=== PATIENT | male | born 1930 | race Caucasian/White ===

== ENCOUNTER 2016-08-23 22:11 | Emergency (ER) | payer BC ==
--- NOTE | 2016-08-23 22:26 | EDPHY ---
H & P Time Seen by Provider: 08/23/16 22:21 HPI/ROS: CHIEF COMPLAINT: Possible CO poisoning HISTORY OF PRESENT ILLNESS: [No fever, chills, chest pain, shortness of breath, palpitations, vomiting, diarrhea, urinary complaints, headache, lightheadedness. ] REVIEW OF SYSTEMS: Aside from elements discussed in the HPI, a comprehensive 10-point review of systems was reviewed and is negative. PAST MEDICAL HISTORY: SOCIAL HISTORY: PHYSICAL EXAM: VITAL SIGNS: Reviewed by me GENERAL: Well-developed, well-nourished, resting comfortably in no respiratory distress. HEENT: Atraumatic. Eyes: No icterus, no injection. Mouth: moist mucous membranes. No erythema or lesions. Neck: supple with no adenopathy. LUNGS: Clear to auscultation bilaterally, no wheezes, rhonchi or rales. CARDIAC: Regular rate and rhythm, no rubs, murmurs or gallops. ABDOMEN: Soft, nontender, nondistended, bowel sounds normal. BACK: No CVA tenderness. EXTREMITIES: No trauma. No edema. Range of motion is normal throughout. NEURO: Alert and oriented, grossly nonfocal. SKIN: Warm and dry, no rash. PSYCHIATRIC: Normal mentation, no agitation. Portions of this note were transcribed by a medical technologist chief. I personally performed a history, physical exam, medical decision making, and confirmed accuracy of information the transcribed note. - Personal History Tetanus Vaccine Date: WITHIN 10 YRS- PT HAS NO RECORD OF VACCINE SINCE Constitutional: Initial Vital Signs O2 Sat (%) 97 08/23/16 22:18 O2 Delivery Mode Non-Rebreather Mask O2 (L/minute) 15 Allergies/Adverse Reactions: tramadol [Tramadol] Allergy (Severe, Verified 07/25/12 14:04) Other-Enter Comments Home Medications: Medication Instructions Recorded Calcium Carbonate [Tums 500MG 1,500 mg PO QID PRN 07/19/12 (OTC)] Herbals/Supplements -Info Only 1 each PO AD 07/19/12 Simvastatin 20 mg PO DAILY@1800 07/19/12 levETIRAcetam [Keppra 500 mg (RX)] 500 mg PO BID 07/19/12 Acetaminophen [Tylenol Tablet] 325 - 650 mg PO Q4H PRN 08/07/12 Calcium Carbonate [Oyster Shell 500 mg PO DAILY 08/07/12 Calcium] Cetirizine [ZyrTEC 10 mg (RX)] 10 mg PO DAILY PRN 08/07/12 Diphenoxylate HCl/Atrop Sulf 1 tab PO PRN PRN 08/07/12 [Lomotil] Ferrous Sulfate [Slow Fe 140 MG 140 mg PO DAILY 08/07/12 (OTC)] Hydrocodone/APAP 5/325 [[place] 1 - 2 tab PO Q4H PRN 08/07/12 5/325] Magnesium Hydroxide [Milk of 30 ml PO DAILY PRN 08/07/12 Magnesia (OTC)] Magnesium Oxide [Magnesium Oxide 200 mg PO DAILY 08/07/12 400 mg (OTC)] Pantoprazole Sodium [Protonix 40mg 40 mg PO DAILY 08/07/12 (RX)] Director Sales Completed 08/07/12 08/07/12 Sennosides/Docusate Sodium 1 - 2 tab PO BID 08/07/12 [Senokot-S] celeCOXIB [Celebrex (RX)] 200 mg PO DAILY 08/07/12 Medical Decision Making ED Course/Re-evaluation: Carboxyhemoglobin elevated at 17.8. - Data Points Laboratory Results: 08/23/16 22:20 Carboxyhemoglobin 17.8 % H % (0-1.5) Departure - Departure Referrals: Abbey Hare MD [Primary Care Provider] - As per Instructions Report Scribed for: Ginny Davis Report Scribed by: Kate Robertson Date of Report: 08/23/16 Time of Report: 22:26
[2016-08-23 22:42] VITALS: TEMP 98.2
[2016-08-23 23:10] LABS: % IMMATURE GRANULYOCYTES 0.3 % (0.0-1.1); ABSOLUTE IMMATURE GRANULOCYTES 0.03 10^3/uL (0.00-0.10); ADD DIFF? NO; ADD MORPH? NO; ADD SCAN? NO; ATYPICAL LYMPHOCYTE FLAG 0 (0-99); FRAGMENT RBC FLAG 0 (0-99); HEMATOCRIT 46.2 % (40.0-51.0); HEMOGLOBIN 16.3 g/dL (13.7-17.5); LEFT SHIFT FLG 50 (0-99); LIPEMIA HEMOLYSIS FLAG 90 (0-99); MEAN CELL HEMOGLOBIN 33.8 pg (27.9-34.1); MEAN CELL HEMOGLOBIN CONCENTR. 35.3 g/dL (32.4-36.7); MEAN CELL VOLUME 95.9 fL (81.5-99.8); PLATELET CLUMPS FLAG 0 (0-99); PLATELET COUNT 219 10^3/uL (150-400); RED BLOOD CELL COUNT 4.82 10^6/uL (4.40-6.38); RED CELL DISTRIBUTION WIDTH 14.7 % (11.5-15.2)
--- NOTE | 2016-08-23 23:15 | CPEKG ---
Heart Rate: 86 RR Interval: 698 P-R Interval: 168 QRSD Interval: 86 QT Interval: 336 QTC Interval: 402 P [place]: 14 QRS [place]: -40 T Wave [place]: 24 EKG Severity - ABNORMAL ECG - EKG Impression: SINUS RHYTHM EKG Impression: LEFT ANTERIOR FASCICULAR BLOCK EKG Impression: BORDERLINE R WAVE PROGRESSION, ANTERIOR LEADS Electronically Signed By: Demi Duggan 24-Aug-2016 00:19:00
[2016-08-23 23:17] LABS: ANION GAP 10 mEq/L (8-16); CALCIUM 9.6 mg/dL (8.5-10.4); CARBON DIOXIDE 21 mEq/l (22-31); CHLORIDE 108 mEq/L (97-110); CREATININE 0.9 mg/dL (0.7-1.3); GLOMERULAR FILTRATION RATE > 60; GLUCOSE 118 mg/dL (70-100); POTASSIUM 4.4 mEq/L (3.5-5.2); SODIUM 139 mEq/L (134-144)
[2016-08-23 23:29] LABS: TROPONIN I 0.016 ng/mL (0-0.034)
--- NOTE | 2016-08-23 23:30 | EDPHY ---
H & P Stated Complaint: carbon monoxide exposure Time Seen by Provider: 08/23/16 22:21 HPI/ROS: HPI The patient presents after known carbon monoxide exposure. [place] he has lost power, the family was using a backup generator for power intermittently over the last 24 hours. There is a flu that was coming back into the house and his had symptoms of palpitations and syncope. Thus they were concerned about carbon monoxide exposure. 911 was called. Carbon monoxide was detected in the house. The patient reports about 30 minutes of palpitations which resolved on their own. He denies any other symptoms. REVIEW OF SYSTEMS Constitutional: No fever, no chills. Eyes: No discharge. ENT: No sore throat. Cardiovascular: No chest pain, no palpitations. Respiratory: No cough, no shortness of breath. Gastrointestinal: No abdominal pain, no vomiting. Genitourinary: No hematuria. Musculoskeletal: No back pain. Skin: No rashes. Neurological: No headache. PMHx: CAD with stent in place Soc Hx: Lives with his PHYSICAL General Appearance: Alert, no distress Eyes: Pupils equal and round no pallor or injection ENT, Mouth: Mucous membranes moist Respiratory: There are no retractions, lungs are clear to auscultation Cardiovascular: Regular rate and rhythm Gastrointestinal: Abdomen is soft and non-tender, no masses, bowel sounds normal Neurological: A&O, moves all extremities Skin: Warm and dry, no rashes Musculoskeletal: Neck is supple non tender Extremities: symmetrical, full range of motion Psychiatric: Patient is oriented X 3, there is no agitation Source: Patient Exam Limitations: No limitations - Personal History Current Tetanus Diphtheria and Acellular Pertussis (TDAP): Yes Tetanus Vaccine Date: WITHIN 10 YRS- PT HAS NO RECORD OF VACCINE SINCE - Medical/Surgical History Hx Asthma: No Hx Chronic Respiratory Disease: No Hx Diabetes: No Hx Cardiac Disease: Yes Hx Renal Disease: No Hx Cirrhosis: No Hx Alcoholism: No Hx HIV/AIDS: No Hx Splenectomy or Spleen Trauma: No Other PMH: stent. bilateral knee replacement, sz - Social History Smoking Status: Never smoked Constitutional: Initial Vital Signs O2 Sat (%) 97 08/23/16 22:18 O2 Delivery Mode Room Air O2 (L/minute) 15 Allergies/Adverse Reactions: tramadol [Tramadol] Allergy (Severe, Verified 07/25/12 14:04) Other-Enter Comments Home Medications: Medication Instructions Recorded Calcium Carbonate [Tums 500MG 1,500 mg PO QID PRN 07/19/12 (OTC)] Herbals/Supplements -Info Only 1 each PO AD 07/19/12 Simvastatin 20 mg PO DAILY@1800 07/19/12 levETIRAcetam [Keppra 500 mg (RX)] 500 mg PO BID 07/19/12 Acetaminophen [Tylenol Tablet] 325 - 650 mg PO Q4H PRN 08/07/12 Calcium Carbonate [Oyster Shell 500 mg PO DAILY 08/07/12 Calcium] Cetirizine [ZyrTEC 10 mg (RX)] 10 mg PO DAILY PRN 08/07/12 Diphenoxylate HCl/Atrop Sulf 1 tab PO PRN PRN 08/07/12 [Lomotil] Ferrous Sulfate [Slow Fe 140 MG 140 mg PO DAILY 08/07/12 (OTC)] Hydrocodone/APAP 5/325 [[place] 1 - 2 tab PO Q4H PRN 08/07/12 5/325] Magnesium Hydroxide [Milk of 30 ml PO DAILY PRN 08/07/12 Magnesia (OTC)] Magnesium Oxide [Magnesium Oxide 200 mg PO DAILY 08/07/12 400 mg (OTC)] Pantoprazole Sodium [Protonix 40mg 40 mg PO DAILY 08/07/12 (RX)] Real Estate Economist Completed 08/07/12 08/07/12 Sennosides/Docusate Sodium 1 - 2 tab PO BID 08/07/12 [Senokot-S] celeCOXIB [Celebrex (RX)] 200 mg PO DAILY 08/07/12 Medical Decision Making - Diagnostics EKG Interpretation: EKG: Complete interpretation has been separately recorded in the [facility] archive. Summary impression: Normal sinus rhythm Differential Diagnosis: This is an 85-year-old male with history of CAD who presents after carbon monoxide exposure. He was relatively asymptomatic except for 30 minutes of palpitations that he experienced while inside the home. Differential diagnosis includes carbon monoxide poisoning, arrhythmia, cardiac ischemia. In the emergency room, the patient was immediately put on a non-rebreather mask for oxygenation. Carboxyhemoglobin was checked and was indeed elevated. He was continued on oxygen for 2 hours and repeat level had decreased significantly. He did not have any symptoms while in the emergency room. Labs were checked and were unremarkable for any signs of cardiac ischemia. He will be discharged with his family. His home is safe to return to. - Data Points Laboratory Results: Laboratory Results 08/23/16 22:20 08/23/16 22:20 08/24/16 08/23/16 08/23/16 00:15 22:20 22:20 WBC 8.82 10^3/uL 10^3/uL (3.80-9.50) RBC 4.82 10^6/uL 10^6/uL (4.40-6.38) Hgb 16.3 g/dL g/dL (13.7-17.5) Hct 46.2 % % (40.0-51.0) MCV 95.9 fL fL (81.5-99.8) MCH 33.8 pg pg (27.9-34.1) MCHC 35.3 g/dL g/dL (32.4-36.7) RDW 14.7 % % (11.5-15.2) Plt Count 219 10^3/uL 10^3/uL (150-400) MPV 10.0 fL fL (8.7-11.7) Neut % (Auto) 79.8 % H % (39.3-74.2) Lymph % (Auto) 9.2 % L % (15.0-45.0) [place] % (Auto) 6.7 % % (4.5-13.0) Eos % (Auto) 2.3 % % (0.6-7.6) Baso % (Auto) 1.7 % % (0.3-1.7) Nucleat RBC Rel Count 0.0 % % (0.0-0.2) Absolute Neuts (auto) 7.04 10^3/uL H 10^3/uL (1.70-6.50) Absolute Lymphs (auto) 0.81 10^3/uL L 10^3/uL (1.00-3.00) Absolute Monos (auto) 0.59 10^3/uL 10^3/uL (0.30-0.80) Absolute Eos (auto) 0.20 10^3/uL 10^3/uL (0.03-0.40) Absolute Basos (auto) 0.15 10^3/uL H 10^3/uL (0.02-0.10) Absolute Nucleated RBC 0.00 10^3/uL 10^3/uL (0-0.01) Immature Gran % 0.3 % % (0.0-1.1) Immature Gran # 0.03 10^3/uL 10^3/uL (0.00-0.10) Carboxyhemoglobin 10.2 % H % (0-1.5) Sodium 139 mEq/L mEq/L (134-144) Potassium 4.4 mEq/L mEq/L (3.5-5.2) Chloride 108 mEq/L mEq/L (97-110) Carbon Dioxide 21 mEq/l L mEq/l (22-31) Anion Gap 10 mEq/L mEq/L (8-16) BUN 26 mg/dL H mg/dL (7-23) Creatinine 0.9 mg/dL mg/dL (0.7-1.3) Estimated GFR > 60 Glucose 118 mg/dL H mg/dL (70-100) Calcium 9.6 mg/dL mg/dL (8.5-10.4) Troponin I 0.016 ng/mL ng/mL (0-0.034) 08/23/16 22:20 WBC RBC Hgb Hct MCV MCH MCHC RDW Plt Count MPV Neut % (Auto) Lymph % (Auto) [place] % (Auto) Eos % (Auto) Baso % (Auto) Nucleat RBC Rel Count Absolute Neuts (auto) Absolute Lymphs (auto) Absolute Monos (auto) Absolute Eos (auto) Absolute Basos (auto) Absolute Nucleated RBC Immature Gran % Immature Gran # Carboxyhemoglobin 17.8 % H % (0-1.5) Sodium Potassium Chloride Carbon Dioxide Anion Gap BUN Creatinine Estimated GFR Glucose Calcium Troponin I Departure - Departure Disposition: Home, Routine, Self-Care Clinical Impression: Palpitations Carbon monoxide poisoning Qualifiers: Encounter type: initial encounter Injury intent: accidental or unintentional Qualified Code(s): T58.91XA - Toxic effect of carbon monoxide from unspecified source, accidental (unintentional), initial encounter Condition: Good Instructions: Carbon Monoxide Poisoning (ED) Referrals: Abbey Hare MD [Primary Care Provider] - As per Instructions
[2016-08-24 00:37] VITALS: RESP 20; O2SAT 96
[2016-08-24 01:13] VITALS: BP 134/92; PULSE 83
== END 2016-08-24 01:13 | disposition home or self-care (01) ==
DX: R00.2 Palpitations (principal); T58.91XA Toxic effect of carbon monoxide from unspecified source, accidental (unintentional), initial encounter; I25.10 Atherosclerotic heart disease of native coronary artery without angina pectoris; Z95.5 Presence of coronary angioplasty implant and graft

== ENCOUNTER → 2017-03-04 | Outpatient (CLI) | payer BC | LOC: BMCIMAGING 11:27 | PROVIDERS: ATTEND Internal Medicine | DX: J40 Bronchitis, not specified as acute or chronic (principal) ==

== ENCOUNTER → 2018-09-26 | Outpatient (CLI) | payer BC | LOC: BMCIMAGING 09:12 ==